=== PATIENT | female | born 1995 | race Two or more races ===

== ENCOUNTER 2017-01-07 22:01 | Emergency (ER) | payer SELFPAY ==
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
[~2017-01-07 22:01] MED LIST: NO MEDICATIONS
== END 2017-01-07 22:41 | disposition home or self-care (01) ==
LOC: SED 22:01
DX: S00.531A Contusion of lip, initial encounter (principal); S00.33XA Contusion of nose, initial encounter; F17.210 Nicotine dependence, cigarettes, uncomplicated; X58.XXXA Exposure to other specified factors, initial encounter; Y92.9 Unspecified place or not applicable
CPT/HCPCS: 70160; 99283